=== PATIENT | female | born 1940 | race Caucasian/White ===

== ENCOUNTER 2016-07-23 13:00 | Emergency (ER) | payer OTHER ==
--- NOTE | 2016-07-23 14:36 | DIAGNOSTIC IMAGING REPORT ---
PROCEDURE: XR CHEST 1 VIEW INDICATION: SHORTNESS OF BREATH TECHNIQUE: Portable AP view 01:34 p.m. COMPARISON: None. FINDINGS: Lungs are clear. Heart and mediastinum are normal. Thorax is normal. IMPRESSION: 1. Negative chest.
--- NOTE | 2016-07-23 16:50 | DIAGNOSTIC IMAGING REPORT ---
PROCEDURE: CTA THORAX WITH CONTRAST INDICATION: Shortness of breath, initial encounter TECHNIQUE: 85 ml of Isovue 370 was injected intravenously and axial images were obtained of the entire thorax with 3D sagittal and coronal MIP reconstructions. COMPARISON: Chest x-ray 07/23/2016 FINDINGS: No evidence of pulmonary emboli. Moderate emphysema. No adenopathy or effusion. Moderate atherosclerosis of the aorta. Coronary atherosclerosis. Heart size is normal. Bilateral mastectomies. Cholecystectomy. 8 mm hypoenhancing lesion in the head of the pancreas. No biliary distention. Small hiatal hernia. Moderate degenerative changes of the spine. IMPRESSION: 1. No evidence of pulmonary emboli 2. Emphysema 3. Cholecystectomy 4. 8 mm hypoenhancing lesion in the head of the pancreas. Recommend dedicated CT scan of the pancreas. 5. Small hiatal hernia 6. Bilateral mastectomies. 7. Results discussed with Allyn Freedman, PAC
--- NOTE | 2016-07-23 17:29 | ED NURSING NOTES ---
Clinical Report - Nurses [facility] [address] [place] [address] 07/23/2016 13:00 Patient: TRICE BUNDY I TRIAGE Triage time 13:00 Jul 23 2016. Acuity: LEVEL 3. Chief Complaint: DIZZINESS, WEAKNESS and NEAR-SYNCOPE. 13:00 07/23/16. SEPSIS SCREEN: Sepsis Screen: negative. Negative (no infection suspected/documented). --13:09 Shayy Garay R.N. 13:01 07/23/16. BP: 181/71. HR: 84. RR: 16. O2 saturation: 100%. Temp: 97.6 F. Pain level now: 0/10. --13:09 Shayy Garay R.N. JOHANN COMA SCORE: Kechi Coma Scale: 15- eyes open spontaneously (4); best verbal response- oriented x 4 (5); best motor response- obeys commands (6). --13:09 Shayy Garay R.N. Weight: 79.3 kg stated. Height/Length: 64 inches Per Patient. BMI: 30. --13:00 Shayy Garay R.N. Medications Unknown. --23:12 Shayy Garay R.N. Medication/allergy information source: the patient. --13:09 Shayy Garay R.N. Allergies No Known Drug Allergy. --13:02 Shayy Garay R.N. History Arrived by EMS. Historian: patient. Patient has a primary care physician. Primary physician (RAFI ABRAMS). ( Patient states felt weak and dizzy, near syncope. [place] fine yesterday). This started today. She has had nausea, trouble walking and weakness. No ear pain, headache, vomiting, fainting episodes or tinnitus. PAST MEDICAL HX: Immunizations: has received pneumonia vaccine. Has not received seasonal influenza immunization. The patient is post-menopausal. SOCIAL HX: Former smoker. No alcohol use or drug use. No infectious disease exposure. ABUSE ASSESSMENT: No report of abuse. SELF HARM ASSESSMENT: A self harm assessment was performed. The patient answered "no" to the question "Have you recently felt down, depressed, or hopeless?", "Have you noticed less interest or pleasure in doing things?", "Do you have thoughts of harming or killing yourself?", "Are you here because you tried to hurt yourself?", "Have you ever tried to hurt yourself before today?", "Have you recently had thoughts about harming or killing others?" and "Do you have any dangerous items in your possession?". NUTRITIONAL RISK ASSESSMENT: The nutritional risk assessment revealed no deficiencies. FUNCTIONAL ASSESSMENT: Functional assessment: no impairments noted. LEARNING NEEDS ASSESSMENT: The learning needs assessment revealed no barriers. SKIN INTEGRITY ASSESSMENT: Skin integrity risk assessment completed. No skin integrity risk identified. --13:09 Shayy Garay R.N. PROBLEMS: Hypertension. Breast Cancer. --13:03 Shayy Garay R.N. ADDITIONAL SURGERIES: Mastectomy. --13:03 Shayy Garay R.N. Interventions ID band on patient. --13:09 Shayy Garay R.N. PHYSICAL ASSESSMENT 13:11 07/23/16. To room via stretcher. GENERAL / NEURO / PSYCH: Oriented X 4. Appears in no acute distress. Alert. Speech within normal limits. NIH Stroke Scale: score 0. Level of Consciousness: alert (0). LOC Questions: both (0). LOC Commands: both (0). Best gaze: normal (0). Visual field loss: none (0). Facial palsy: normal (0). Motor arm: no drift right arm (0). Motor leg: no drift right leg (0). Limb ataxia: none (0). Sensory loss: none (0). Aphasia: none (0). Dysarthria: normal (0). Extinction and inattention: none (0). HEENT: No facial asymmetry noted. Pupils equal, round and reactive to light. RESPIRATORY: Breath sounds within normal limits. CVS: Normal sinus rhythm noted. Capillary refill less than 2 seconds. GI / : Abdomen soft and nontender. SKIN: Skin is warm and dry. --13:11 Shayy Garay R.N. NURSING PROGRESS NOTES 13:00 07/23/16. Cardiac rhythm: normal sinus rhythm. The initial plan of care for this patient includes an assessment with efforts to address impairment of the cardiovascular and neurological system. This plan of care was discussed with the patient. transportation job titles, pulse oximeter and NIBP monitor placed on patient; recreation adviser- Lead II; monitor alarms on. Patient gowned. Two patient identifiers checked. Call light placed in reach. Side rails up x 2. Bed placed in lowest position. Brakes of bed on. Patient ready for evaluation. --13:10 Shayy Garay R.N. 13:30 07/23/2016 Site #1 started via IV in the right forearm with an 20g angiocath, with aseptic technique and good blood return; one attempt. Saline lock flushed with 10 mL saline. --13:34 Shayy Garay R.N. 13:34 07/23/16. Patient ID band checked for patient name and birthdate: patient confirmed. Blood samples drawn from the right forearm with syringe 22g by nurse ; labeled in presence of the patient and sent to lab: green, purple and blue top. --13:34 Shayy Garay R.N. 13:37 07/23/2016 Started bag #1 1000 mL IV Fluids IV NS (Saline); bolus of 1000 mL wide open then at 2000 mL/hr over 30 minute(s) via site #1. Allergies verified and confirmed 5 rights. IV patency established. IV site checked: no pain, redness, or swelling. IV flushed thoroughly pre- and post-medication administration. --13:37 Shayy Garay R.N. EKG time: (13:37 Jul 23 2016). EKG was ordered, performed by a tech and shown to the ED physician. --13:38 Evelyn [place] 14:10 07/23/2016 IV Fluids IV NS Discontinued: bag #1 completed. Total amount infused: 1000 mL. IV patency established. IV site checked: no pain, redness, or swelling. IV flushed thoroughly. --14:10 Shayy Garay R.NHelder 14:14 07/23/16. Reassessment after fluids administered. She is calm and resting quietly. Overall patient status is improved- she states feels better. ( STATES HEAD FEELS MORE CLEAR). GENERAL / NEURO / PSYCH: Alert. Oriented X 4. --14:14 Shayy Garay R.N. 14:14 07/23/16. BP: 171/58. HR: 82. RR: 16. O2 saturation: 100%. Pain level now 5/10. --14:14 Shayy Garay R.NHelder 14:30 07/23/16. Patient ID band checked for patient name and birthdate: patient confirmed. Flu swab obtained by RN via nasal swab. Labeled in the presence of the patient and sent to lab. --14:54 Shayy Garay R.N. 14:40 07/23/16. Cardiac rhythm: normal sinus rhythm. --14:40 Shayy Garay R.N. 14:40 07/23/16. BP: 176/78. HR: 64. RR: 18. O2 saturation: 100%. --14:40 Shayy Garay R.N. 16:47 07/23/16. BP: 174/81. HR: 78. RR: 16. O2 saturation: 100%. --16:48 Shayy Garay R.N. Cardiac rhythm: normal sinus rhythm. Patient waiting for CT results and disposition. --16:48 Shayy Garay R.N. 17:45 07/23/2016 Site #1 removed upon discharge. Bandaid applied. --19:06 Josie Dee R.N. 17:40first contact with pt. Pt given dc instructions and IV site dc'd intact. --19:08 Josie Dee R.N. Intake & Output 14:40 07/23/16. IV fluids: 1000. Urine, with return of 400 mL urine. --14:40 Shayy Garay R.N. DISPOSITION / DISCHARGE 17:50. Condition at departure: improved and stable. No learning barriers present. Discharge instructions provided and reviewed with the patient and family. Reviewed referrals (your PCP on Wednesday for f/u regarding pancreas). Written instructions provided in [place]. The patient was discharged home and accompanied by family. She left the Emergency Department ambulatory and via private vehicle. --19:05 Josie Dee R.N. 17:52 07/23/16. BP: 166/67. HR: 66. RR: 18. O2 saturation: 100%. Temp: deferred. Pain level now: 09/18. --19:05 Josie Dee R.N. Locked/Released at 07/23/2016 23:13 by Shayy Garay R.N.
--- NOTE | 2016-07-23 17:29 | ED ORDER SUMMARY ---
..... Patient: TRICE BUNDY I OrderSheet [facility] VisitID: [id number] [place] [address] 76y, F Registration Date/Time: 07/23/2016 ORDER SHEET Weight: 79.3 kg (stated) Allergies: No Known Drug Allergy GENERAL ORDERS: Climatology Professor (Spot Check) (13:07/23/2016 EKoroleva P.A.-C) (Ack 13:16 TBergley) (13:35 EInderbitzen R.N.) EKG - ER Stat (13:07/23/2016 EKoroleva P.A.-C) (Ack 13:16 TBergley) (13:35 EInderbitzen R.N.) Chest 1V Urgent (13:07/23/2016 EKoroleva P.A.-C) (Ack 13:26 TBergley) (14:18 TBergley) UA-Culture if indicated Urgent (13:22 07/23/2016 EKoroleva P.A.-C) (Ack 13:26 TBergley) (14:31 EInderbitzen R.N.) Cardiac Panel Stat (13:07/23/2016 EKoroleva P.A.-C) (Ack 13:26 TBergley) (13:52 TBergley) D-Dimer Urgent (13:07/23/2016 EKoroleva P.A.-C) (Ack 13:26 TBergley) (13:52 TBergley) Lipase Urgent (13:22 07/23/2016 EKoroleva P.A.-C) (Ack 13:26 TBergley) (13:52 TBergley) Rapid Influenza Screen (Nasal Pharyngeal) (n) Urgent (13:07/23/2016 EKoroleva P.A.-C) (Ack 13:26 TBergley) (15:10 EInderbitzen R.N.) CTA Thorax w Cont (No) (see lab) Urgent (15:06 07/23/2016 EKoroleva P.A.-C) (Ack 15:14 TBergley) (17:32 TBergley) Vitals - Orthostatic (16:56 07/23/2016 Nabil Ricardo) (Ack 17:12 TBergley) (17:32 TBergley) MEDICATION ORDERS: IV FLUIDS: IV NS : initial bolus 1000 mL (1000 mL/hr), then 100 mL/hr for X1 (NOW); Niranjan (13:22 07/23/2016 Nabil Ricardo) (13:37 Demetra Rucker) ORDER SHEET NOTES: [Electronically signed by Shayy Garay R.N. (23:13 07/23/2016)] [Electronically signed by Christelle Freedman P.A.-C (23:27 07/23/2016)] [Electronically locked/signed by Shayy Garay R.N. (23:13 07/23/2016)]
--- NOTE | 2016-07-23 17:29 | ED ORDER SUMMARY ---
..... Patient: TRICE BUNDY I OrderSheet [facility] VisitID: [id number] [place] [address] 76y, F Registration Date/Time: 07/23/2016 ORDER SHEET Weight: 79.3 kg (stated) Allergies: No Known Drug Allergy GENERAL ORDERS: Health Science Writer (Spot Check) (13:07/23/2016 EKoroleva P.A.-C) (Ack 13:16 TBergley) (13:35 EInderbitzen R.N.) EKG - ER Stat (13:07/23/2016 EKoroleva P.A.-C) (Ack 13:16 TBergley) (13:35 EInderbitzen R.N.) Chest 1V Urgent (13:07/23/2016 EKoroleva P.A.-C) (Ack 13:26 TBergley) (14:18 TBergley) UA-Culture if indicated Urgent (13:22 07/23/2016 EKoroleva P.A.-C) (Ack 13:26 TBergley) (14:31 EInderbitzen R.N.) Cardiac Panel Stat (13:07/23/2016 EKoroleva P.A.-C) (Ack 13:26 TBergley) (13:52 TBergley) D-Dimer Urgent (13:07/23/2016 EKoroleva P.A.-C) (Ack 13:26 TBergley) (13:52 TBergley) Lipase Urgent (13:22 07/23/2016 EKoroleva P.A.-C) (Ack 13:26 TBergley) (13:52 TBergley) Rapid Influenza Screen (Nasal Pharyngeal) (n) Urgent (13:07/23/2016 EKoroleva P.A.-C) (Ack 13:26 TBergley) (15:10 EInderbitzen R.N.) CTA Thorax w Cont (No) (see lab) Urgent (15:06 07/23/2016 EKoroleva P.A.-C) (Ack 15:14 TBergley) (17:32 TBergley) Vitals - Orthostatic (16:56 07/23/2016 Nabil Ricardo) (Ack 17:12 TBergley) (17:32 TBergley) MEDICATION ORDERS: IV FLUIDS: IV NS : initial bolus 1000 mL (1000 mL/hr), then 100 mL/hr for X1 (NOW); Niranjan (13:22 07/23/2016 Nabil Ricardo) (13:37 Demetra Rucker) ORDER SHEET NOTES: [Electronically signed by Shayy Garay R.N. (23:13 07/23/2016)] [Electronically signed by Christelle Freedman P.A.-C (23:27 07/23/2016)] [Electronically locked/signed by Shayy Garay R.N. (23:13 07/23/2016)]
--- NOTE | 2016-07-23 17:29 | ED CLINICAL REPORT ---
Clinical Report - Physicians/Mid Levels [facility] [address] [place] [address] 07/23/2016 13:00 Patient: TRICE BUNDY I Time Seen: 13:22 Jul 23 2016. Arrived- By ambulance. Historian- patient and EMS personnel. HISTORY OF PRESENT ILLNESS Chief Complaint: weak. This started just prior to arrival and is still present. (she reports awakening as her usual self, having urgency and frequency to the bathroom, thought she had a bladder infection, that started drinking heavily with water, thereafter while standing she did not feel well, weak lightheaded dizzy, and went to lay down, attempted to get up, however did not feel well standing, and this called a friend, who called 911. She denies any shortness of breath or chest pain. She reports uncomfortable being in the bed, she has spinal stenosis and chronic low back pain. This is not new. She has had no fevers. She has no shortness of breath or chest pain. Indications to her omeprazole as needed over the last 1 month, with new diagnosis of acid reflux. no recent travel). REVIEW OF SYSTEMS No fever, sore throat, cough, difficulty breathing or chest pain. No nausea, diarrhea, skin rash or back pain. She has had difficulty with urination. All systems otherwise negative, except as recorded above. PAST HISTORY Problems: Hypertension. Breast Cancer. Additional Surgeries: Mastectomy. Allergies: No Known Drug Allergy. SOCIAL HISTORY Former smoker. No alcohol use or drug use. ADDITIONAL NOTES The nursing notes have been reviewed. PHYSICAL EXAM Vital Signs: 07/23/2016 13:01 BP: 181/71. HR: 84. RR: 16. O2 saturation: 100%. Temp: 97.6 F. Pain level now: 0/10. Appearance: Alert. Patient in mild distress. Eyes: Eyes normal inspection. CVS: Normal heart rate and rhythm. Heart sounds normal. Respiratory: No respiratory distress. Breath sounds normal. Abdomen: No visible injury. Soft. Bowel sounds normal. No abdominal tenderness. The bowel sounds are not abnormal. Skin: Skin warm. Normal skin color. Neuro: Oriented X 3. No cranial nerve deficit. No motor deficit. No sensory deficit. LABS, X-RAYS, AND EKG EKG: EKG time: (1337). No acute process. No acute ischemia. Rate: 74. no change from prior study04/08/[address] Bui (ER). The study has been interpreted contemporaneously. The study has been independently viewed by me. The EKG appears to be a good tracing. Chest X-ray: (IMPRESSION: 1. Negative chest. Electronically Final signed by:Milan Negrete MD 07/23/2016 2:39:47 PM). Chest CT: (IMPRESSION: 1. No evidence of pulmonary emboli 2. Emphysema 3. Cholecystectomy 4. 8 mm hypoenhancing lesion in the head of the pancreas. Recommend dedicated CT scan of the pancreas. 5. Small hiatal hernia 6. Bilateral mastectomies. 7. Results discussed with IVETH Vance Electronically Final signed by:Danish Hensley MD 07/23/2016 4:50:18 PM). Laboratory Tests: UA-Culture if indicated: (SUNDAY: 07/23/2016 13:46) ( MsgRcvd 07/23/2016 14:30) Final results Test Result Flag Units (Reference) URINE COLOR YELLOW URINE APPEARANCE CLEAR URINE GLUCOSE NEGATIVE (NEGATIVE) URINE BILIRUBIN NEGATIVE (NEGATIVE) URINE KETONE NEGATIVE (NEGATIVE) URINE SPECIFIC GRAVITY 1.010 (1.010-1.030) URINE PH 7.0 (5.0-8.0) URINE PROTEIN NEGATIVE (NEGATIVE) URINE UROBILINOGEN 0.2 EU/dL (0.2-1.0) URINE NITRITE NEGATIVE (NEGATIVE) URINE BLOOD 1+ (NEGATIVE) URINE LEUK ESTERASE NEGATIVE (NEGATIVE) URINE RBC RARE rbc/hpf (0-1) URINE WBC 0-1 wbc/hpf (0-1) URINE EPITHELIAL CELLS 1-3 EPI/hpf (0-5) URINE BACTERIA NONE SEEN (NONE SEEN) URINE COMMENT CULT NOT INDICATED URINE CULTURES ARE SET-UP BASED ON THE FOLLOWING CRITERIA:POSITIVE NITRITEPOSITIVE LEUKOCYTE ESTERASEGREATER THAN 10 WHITE BLOOD CELLSMODERATE (2+) OR GREATER BACTERIA CBC w Diff: (SUNDAY: 07/23/2016 13:30) ( MsgRcvd 07/23/2016 13:54) Final results Test Result Flag Units (Reference) WHITE BLOOD COUNT 9.3 K/uL (4.5-11.5) RED BLOOD COUNT 4.69 M/uL (4.00-5.20) HEMOGLOBIN 14.0 gm/dL (12.0-16.0) HEMATOCRIT 43.3 % (36.0-46.0) MEAN CELL VOLUME 92 fL (80-100) MEAN CORPUSCULAR HGB 30 pg (26-34) MEAN CORPUSCULAR HGB CONC 32 g/dL (31-37) RED CELL DISTRIBUTION WIDTH 14.2 % (11.6-14.8) PLATELET COUNT 251 K/uL (150-400) LYMPH % 40.2 H % (25-40) MONO % 5.8 % (3-14) GRANULOCYTE % 54.0 (53-90) [id number]: (SUNDAY: 07/23/2016 13:30) ( MsgRcvd 07/23/2016 14:14) Final results Test Result Flag Units (Reference) D-DIMER QUANTITATIVE 0.95 H ug/mLFEU (0.27-0.52) The primary value of this quantitative assay relates toits negative predictive value (i.e. exclusion) of pulmonaryembolism/deep vein thrombosis/DIC.Elevated levels of d-dimer may also occur with:, age, cancer, inflammation, liver disease,post-op, infection, hematoma, coronary disease, peripheralarteriopathy, bleeding disorders and thrombolytic treatment.Results should be correlated with other clinical andradiological data.Testing Methodology: Latex Immunoassay CHEM 13 PANEL: (SUNDAY: 07/23/2016 13:30) ( MsgRcvd 07/23/2016 15:05) Final results Test Result Flag Units (Reference) GLUCOSE 130 H mg/dL (70-110) BUN 16 mg/dL (7-18) CREATININE 0.7 mg/dL (0.6-1.3) Estimated GFR >60 mL/min Estimated GFR- >60 mL/min Note: Persistent reduction over 3 months in eGFR<60 mL/min/1.73 m2 defines CKD. Patients with eGFR values>=60 mL/min/1.73 m2 may also have CKD if evidence ofpersistent proteinuria. Additional information may be foundat www.kidney.org. SODIUM 129 L mmol/L (136-145) POTASSIUM 3.8 mmol/L (3.5-5.1) CHLORIDE 94 L mmol/L (98-107) CARBON DIOXIDE 23 mmol/L (21-32) CALCIUM 8.7 mg/dL (8.5-10.1) TOTAL PROTEIN 6.8 g/dL (6.4-8.2) ALBUMIN 3.2 L g/dL (3.3-5.0) BILIRUBIN, TOTAL 1.0 mg/dL (0.0-1.0) ALKALINE PHOSPHATASE 108 U/L (46-116) AST (SGOT) 41 H U/L (15-37) ALT (SGPT) 49 U/L (12-78) MAGNESIUM 1.6 L mg/dL (1.8-2.4) LIPASE 221 U/L (73-393) CPK 122 U/L (24-260) TROPONIN I 0.07 ng/mL (0.00-1.5) TROPONIN REFERENCE RANGE:<0.1 NEGATIVE0.1-1.5 INDETERMINANT>1.5 POSITIVE Rapid Influenza Screen: (SUNDAY: 07/23/2016 14:35) ( MsgRcvd 07/23/2016 15:00) Final results SPECIMEN DESCRIPTION: N Test Result Flag Units (Reference) RAPID INFLUENZA SCREEN DATE: 07/23/16 INFLUENZA A: NEGATIVE SCREEN FOR INFLUENZA A INFLUENZA B: NEGATIVE SCREEN FOR INFLUENZA B . PROGRESS AND PROCEDURES Course of Care: patient in the ER, had vague symptoms upon arrival, her symptoms resolved after IV normal saline. She may have had symptomatic hyponatremia, secondary to drinking water prior to arrival, however at this time such has been resolved, no other clear cause or source of her weakness, and vague sensations. At this time she had no further symptoms, CTA of the chest was unremarkable, after a elevated d-dimer was discovered. Troponin EKG unremarkable, lab workup is largely unremarkable beyond hyponatremia, no signs of cystitis. Small pancreas lesion was noted, patient was made aware of this, and will be dedicated CT for such. She is aware of this. 07/23/2016 17:52 BP: 166/67. HR: 66. RR: 18. O2 saturation: 100%. Pain level now: 09/18. Patient is stable. Symptoms better. Patient/family counseled. Differential Diagnosis: I considered ischemic stroke, subdural hematoma, arteriovenous malformation, aneurysm, migraine equivalent, cord compression, disc disease, subdural abscess, epidural abscess, syringomyelia, transverse myelitis, spinal cord stroke, spinal arteriovenous malformation, peripheral neuropathy, toxic etiology, hypoglycemia, hyperglycemia, periodic hypokalemic paralysis, paraneoplastic syndrome, Guillain-[place] syndrome, HIV-related disease and polymyositis as a possible cause of weakness in this patient. This is a partial list of diagnoses considered. I considered muscle strain, pleurisy, epidemic pleurodynia, intercostal neuritis, myocardial infarction, intermediate coronary syndrome, aortic dissection, pulmonary embolism and pneumonia as a possible cause of chest pain in this patient. This is a partial list of diagnoses considered. Disposition: Discharged. CLINICAL IMPRESSION Acute dizziness Hypertension. Mild hyponatremia Pancreas Lesion. INSTRUCTIONS (8 mm hypoenhancing lesion in the head of the pancreas. Recommend dedicated CT scan of the pancreas). Warnings: Further evaluation is necessary. GENERAL WARNINGS: Return or contact your physician immediately if your condition worsens or changes unexpectedly, if not improving as expected, or if other problems arise. Follow-up: Follow up with your doctor Wednesday. (Electronically signed by Christelle Freedman P.A.-C 07/23/2016 23:27)
--- NOTE | 2016-07-23 23:27 | ED MED RECONCILIATION SUMMARY ---
Patient: TRICE BUNDY I Medication Reconciliation Report [facility] VisitID: [id number] [address] [place] [address] 76y, F Registration Date/Time: 07/23/2016 Weight: 79.3 kg Height/Length: 64 in. BMI: 30.0 ALLERGIES: No Known Drug Allergy The patient's Home Medications are listed below: Unknown. The source(s) of the original Home Medication information: patient The following Medications were given to the patient in the Emergency Department: IV NS IV Fluids bolus 1000 mL wide open, then 2000 mL/hr, administered: 07/23/2016 1:37:00 PM The following Medications were prescribed to the patient: None.
--- NOTE | 2016-07-23 23:27 | ED DISCHARGE INSTRUCTIONS ---
Patient: TRICE BUNDY I General Instructions [facility] VisitID: [id number] [place] [address] 76y, F Registration Date/Time: 07/23/2016 Acute dizziness Hypertension. Mild hyponatremia Pancreas Lesion. INSTRUCTIONS (8 mm hypoenhancing lesion in the head of the pancreas. Recommend dedicated CT scan of the pancreas). Warnings: Further evaluation is necessary. GENERAL WARNINGS: Return or contact your physician immediately if your condition worsens or changes unexpectedly, if not improving as expected, or if other problems arise. Follow-up: Follow up with your doctor Wednesday. ADDITIONAL INFORMATION Dizziness [Uncertain Cause] Dizziness is a common symptom sometimes described as "lightheadedness" or feeling like you are going to faint. If it lasts for only a few seconds and is related to changes in position (such as getting up after lying or sitting for a long time), it is usually not a sign of anything serious. Dizziness that lasts for minutes to hours, or comes on for no apparent reason, may be a sign of a more serious problem (such as dehydration, a medicine reaction, disease of the heart or brain). Today's exam did not show an exact cause for your dizzy spell . Sometimes additional tests are required before a cause can be found. Therefore, it is important to follow up with your doctor if your symptoms continue. Home Care: 1) If a dizzy spell occurs and lasts more than a few seconds, lie down until it passes. If you are lying down, then you cannot hurt yourself by falling if you do faint. 2) Do not drive or operate dangerous equipment until the dizzy spells have stopped for at least 48 hours. 3) If dizzy spells occur with sudden standing, this may be a sign of mild dehydration. Drink extra fluids over the next few days. 4) If you recently started a new medicine or if you had the dose of a current medicine increased (especially blood pressure medicine), talk with the prescribing doctor about your symptoms. Dose adjustments may be needed. Follow Up with your doctor for further evaluation within the next seven days, if your symptoms continue. Get Prompt Medical Attention if any of the following occur: -- Worsening of your symptoms -- Fainting, headache or seizure -- Repeated vomiting -- Feeling like you or the room is spinning -- Chest, arm, neck, back or jaw pain -- Palpitations (the sense that your heart is fluttering or beating fast or hard) -- Shortness of breath -- Blood in vomit or stool (black or red color) -- Weakness of an arm or leg or one side of the face -- Difficulty with speech or vision Hyponatremia Hyponatremia means low sodium levels in the blood. This condition most often occurs after prolonged vomiting or diarrhea. It can also result from the use of diuretics (water pills) or drinking excess amounts of water. Mild hyponatremia causes no symptoms. It is only discovered with a blood test. As sodium levels in the blood decreases, symptoms begin to appear. This includes weakness, confusion, muscle cramping and seizures. Home Care: 1) Reduce your daily water intake until the problem is corrected. 2) If you have been taking diuretics, you may be asked to stop taking them for a short time. 3) If you are having symptoms of weakness or confusion, do not drive or operate dangerous machinery until symptoms resolve. Follow Up with your doctor for a repeat blood test within the next week unless told otherwise. Get Prompt Medical Attention if any of the following occur: -- Increasing weakness -- Dizziness -- Irregular heartbeat, extra beats or very fast heart rate -- Fainting spell You have been given the following additional information: Dizziness, Unk Cause Hyponatremia (Electronically signed by Christelle Freedman P.A.-C 07/23/2016 23:27)
--- NOTE | 2016-07-23 23:27 | ED MAR SUMMARY ---
..... Medication Administration Record [facility] [address] [place] [address] Patient: TRICE BUNDY I Visit ID: [id number] 76y, F Weight: 79.3 kg Height/Length: 64 in BMI: 30 ALLERGIES: No Known Drug Allergy Start 13:37 07/23/2016 Shayy Garay R.N., Stop 14:10 07/23/2016 Shayy Garay R.N. Medication Administered: IV NS (SALINE), Dose: IV Fluids over 30 minute(s), Rate: 2000 mL/hr, Bolus: 1000 mL wide open, Dispensed: 1000 mL bag, Site: #1 right forearm. Medication Ordered: IV NS : initial bolus 1000 mL (1000 mL/hr), then 100 mL/hr for X1 (NOW); Niranjan.
--- NOTE | 2016-07-23 23:27 | ED MED RECONCILIATION SUMMARY ---
Patient: TRICE BUNDY I Medication Reconciliation Report [facility] VisitID: [id number] [address] [place] [address] 76y, F Registration Date/Time: 07/23/2016 Weight: 79.3 kg Height/Length: 64 in. BMI: 30.0 ALLERGIES: No Known Drug Allergy The patient's Home Medications are listed below: Unknown. The source(s) of the original Home Medication information: patient The following Medications were given to the patient in the Emergency Department: IV NS IV Fluids bolus 1000 mL wide open, then 2000 mL/hr, administered: 07/23/2016 1:37:00 PM The following Medications were prescribed to the patient: None.
--- NOTE | 2016-07-23 23:27 | ED MAR SUMMARY ---
..... Medication Administration Record [facility] [address] [place] [address] Patient: TRICE BUNDY I Visit ID: [id number] 76y, F Weight: 79.3 kg Height/Length: 64 in BMI: 30 ALLERGIES: No Known Drug Allergy Start 13:37 07/23/2016 Shayy Garay R.N., Stop 14:10 07/23/2016 Shayy Garay R.N. Medication Administered: IV NS (SALINE), Dose: IV Fluids over 30 minute(s), Rate: 2000 mL/hr, Bolus: 1000 mL wide open, Dispensed: 1000 mL bag, Site: #1 right forearm. Medication Ordered: IV NS : initial bolus 1000 mL (1000 mL/hr), then 100 mL/hr for X1 (NOW); Niranjan.
== END 2016-07-23 17:50 | disposition home or self-care (01) ==
LOC: ED SRH 13:00
DX: R42 Dizziness and giddiness (principal); I10 Essential (primary) hypertension; E87.1 Hypo-osmolality and hyponatremia; K86.9 Disease of pancreas, unspecified; Z85.3 Personal history of malignant neoplasm of breast; Z87.891 Personal history of nicotine dependence
CPT/HCPCS: 90004; 90100; 90616; 91400; 91556; 92235; 92610; 92720; 95059

== ENCOUNTER 2016-10-13 17:10 | Observation (INO) | payer OTHER ==
[~2016-10-13] VITALS: Ht 162.6 cm; Wt 81.2 kg
--- NOTE | 2016-10-13 18:34 | DIAGNOSTIC IMAGING REPORT ---
PROCEDURE: CT HEAD WITHOUT CONTRAST INDICATION: MENTAL STATUS CHANGE TECHNIQUE: Noncontrast axial images with sagittal and coronal reformations. COMPARISON: None. FINDINGS: There are prominent CSF spaces over the frontal lobes. Brain and ventricles are normal. No evidence of an acute process or hemorrhage. Sinuses and mastoids are normal. IMPRESSION: 1. Prominent CSF spaces over the frontal lobes most consistent with frontal atrophy. Bilateral chronic subdural hygromas are considered less likely (no evidence of mass effect). 2. Otherwise negative head CT. No evidence of acute process. No evidence of hydrocephalous 3. Findings discussed with Dr. Stalin Perdue at [address] scans at this facility use dose modulation, iterative reconstruction, and/or weight-based dosing when appropriate to reduce radiation dose to as low as reasonably achievable.
--- NOTE | 2016-10-13 18:47 | DIAGNOSTIC IMAGING REPORT ---
PROCEDURE: XR CHEST 2 VIEW INDICATION: ALTERED MENTAL STATUS TECHNIQUE: PA and lateral views. COMPARISON: Compared to CTA thorax on 07/23/2016. FINDINGS: Lungs are clear. Heart and mediastinum are normal. There mild degenerate change of the thoracic spine. Surgical clips are seen overlying the left axilla. IMPRESSION: 1. Negative chest.
--- NOTE | 2016-10-13 21:45 | ED CLINICAL REPORT ---
Clinical Report - Physicians/Mid Levels [facility] [address] [place] [address] 10/13/2016 17:10 Patient: TRICE BUNDY I Time Seen: 1755. Arrived- By private vehicle. Historian- patient. HISTORY OF PRESENT ILLNESS Chief Complaint: CHANGED MENTAL STATUS. This started past few days and is still present and worsening. It was gradual in onset and has been constant and waxing/waning but is not gone now. Patient was last known well (several days ago). The patient has been confused and "felt strange". (difficulty with walking, dizzy, and with problems concentrating.). No numbness or recent fall. She has had difficulty walking. Usually is alert and oriented X3 and usually has normal mobility. Similar symptoms previously: (once several months ago. attributed this to dehydration.). Recent medical care: Not recently seen/assessed. REVIEW OF SYSTEMS No chest pain, difficulty breathing, abdominal pain, nausea or black stools. No skin rash or vomiting. All systems otherwise negative, except as recorded above. PAST HISTORY See nurses notes. Medications: Losartan Potassium-HCTZ Oral. Gabapentin Oral. Allergies: No Known Drug Allergy. SOCIAL HISTORY Never smoker. No alcohol use or drug use. No recent travel. Is a local resident. ADDITIONAL NOTES The nursing notes have been reviewed. PHYSICAL EXAM Vital Signs: 10/13/2016 17:59 BP: 181/74. HR: 72. RR: 18. O2 saturation: 97%. Temp: 98.6 F. Hypertensive. Oxygen saturation normal. Appearance: Alert. No acute distress. Head: Head atraumatic. Eyes: Pupils equal, round and reactive to light. ENT: Normal ENT inspection. Airway intact. Moist mucous membranes. Pharynx normal. Neck: Normal inspection. Neck supple. CVS: Normal heart rate and rhythm. Heart sounds normal. Pulses normal. Respiratory: No respiratory distress. Breath sounds normal. Abdomen: Soft and nontender. No organomegaly. Back: Normal inspection. Skin: Skin warm and dry. Normal skin color. No rash. Normal skin turgor. Extremities: Extremities exhibit normal ROM. No lower extremity edema. Neuro: Alert. Oriented X 3. Mood/affect normal. Speech normal. Cranial nerves normal (as tested). No cerebellar findings. No motor deficit. No sensory deficit. Reflexes normal. LABS, X-RAYS, AND EKG Chest X-ray: (PROCEDURE: XR CHEST 2 VIEW INDICATION: ALTERED MENTAL STATUS TECHNIQUE: PA and lateral views. COMPARISON: Compared to CTA thorax on 07/23/2016. FINDINGS: Lungs are clear. Heart and mediastinum are normal. There mild degenerate change of the thoracic spine. Surgical clips are seen overlying the left axilla. IMPRESSION: 1. Negative chest.). CT Head: (PROCEDURE: CT HEAD WITHOUT CONTRAST INDICATION: MENTAL STATUS CHANGE TECHNIQUE: Noncontrast axial images with sagittal and coronal reformations. COMPARISON: None. FINDINGS: There are prominent CSF spaces over the frontal lobes. Brain and ventricles are normal. No evidence of an acute process or hemorrhage. Sinuses and mastoids are normal. IMPRESSION: 1. Prominent CSF spaces over the frontal lobes most consistent with frontal atrophy. Bilateral chronic subdural hygromas are considered less likely (no evidence of mass effect). 2. Otherwise negative head CT. No evidence of acute process. No evidence of hydrocephalous). Head CT performed without contrast. The study was independently viewed by me and interpreted by the radiologist. The study was discussed with the radiologist (via phone). Laboratory Tests: UA-Culture if indicated: (SUNDAY: 10/13/2016 18:10) ( MsgRcvd 10/13/2016 18:44) Final results Test Result Flag Units (Reference) URINE COLOR YELLOW URINE APPEARANCE CLEAR URINE GLUCOSE NEGATIVE (NEGATIVE) URINE BILIRUBIN NEGATIVE (NEGATIVE) URINE KETONE NEGATIVE (NEGATIVE) URINE SPECIFIC GRAVITY 1.010 (1.010-1.030) URINE PH 7.0 (5.0-8.0) URINE PROTEIN NEGATIVE (NEGATIVE) URINE UROBILINOGEN 0.2 EU/dL (0.2-1.0) URINE NITRITE NEGATIVE (NEGATIVE) URINE BLOOD TRACE-INTACT (NEGATIVE) URINE LEUK ESTERASE NEGATIVE (NEGATIVE) URINE RBC 3-5 rbc/hpf (0-1) URINE WBC 0-1 wbc/hpf (0-1) URINE EPITHELIAL CELLS 1-3 EPI/hpf (0-5) URINE BACTERIA NONE SEEN (NONE SEEN) URINE COMMENT CULT NOT INDICATED URINE CULTURES ARE SET-UP BASED ON THE FOLLOWING CRITERIA:POSITIVE NITRITEPOSITIVE LEUKOCYTE ESTERASEGREATER THAN 10 WHITE BLOOD CELLSMODERATE (2+) OR GREATER BACTERIA CBC w Diff: (SUNDAY: 10/13/2016 18:50) ( [facility] 10/13/2016 19:09) Final results Test Result Flag Units (Reference) WHITE BLOOD COUNT 8.5 K/uL (4.5-11.5) RED BLOOD COUNT 4.33 M/uL (4.00-5.20) HEMOGLOBIN 13.5 gm/dL (12.0-16.0) HEMATOCRIT 39.8 % (36.0-46.0) MEAN CELL VOLUME 92 fL (80-100) MEAN CORPUSCULAR HGB 31 pg (26-34) MEAN CORPUSCULAR HGB CONC 34 g/dL (31-37) RED CELL DISTRIBUTION WIDTH 13.5 % (11.6-14.8) PLATELET COUNT 292 K/uL (150-400) NEUTROPHIL % 76.8 H % (50-75) LYMPH % 16.3 L % (25-40) MONO % 5.5 % (3-14) EOSINOPHIL % 0.3 % (0-4) BASOPHIL % 1.1 % (0-2) TSH: (SUNDAY: 10/13/2016 19:15) ( [facility] 10/13/2016 20:09) Final results Test Result Flag Units (Reference) THYROID STIMULATING HORMONE 2.212 uIU/mL (0.30-3.74) Lactate, Serum: (SUNDAY: 10/13/2016 19:15) ( [facility] 10/13/2016 20:03) Final results Test Result Flag Units (Reference) LACTIC ACID 1.2 mmol/L (0.4-2.0) CMP: (SUNDAY: 10/13/2016 19:15) ( [facility] 10/13/2016 19:55) Final results Test Result Flag Units (Reference) GLUCOSE 117 H mg/dL (70-110) BUN 10 mg/dL (7-18) CREATININE 0.7 mg/dL (0.6-1.3) Estimated GFR >60 mL/min Estimated GFR- >60 mL/min Note: Persistent reduction over 3 months in eGFR<60 mL/min/1.73 m2 defines CKD. Patients with eGFR values>=60 mL/min/1.73 m2 may also have CKD if evidence ofpersistent proteinuria. Additional information may be foundat www.kidney.org. SODIUM 122 L mmol/L (136-145) POTASSIUM 4.0 mmol/L (3.5-5.1) CHLORIDE 88 L mmol/L (98-107) CARBON DIOXIDE 23 mmol/L (21-32) CALCIUM 9.1 mg/dL (8.5-10.1) TOTAL PROTEIN 7.0 g/dL (6.4-8.2) ALBUMIN 3.4 g/dL (3.3-5.0) BILIRUBIN, TOTAL 1.1 H mg/dL (0.0-1.0) ALKALINE PHOSPHATASE 92 U/L (46-116) AST (SGOT) 32 U/L (15-37) ALT (SGPT) 38 U/L (12-78) . PROGRESS AND PROCEDURES Course of Care: the patient is a pleasant 36-year-old female presenting for a vaginal to mental status. The differential diagnosis at this time includes metabolic abnormality,hyperglycemia, infectious etiology, or head injury/bleed. Workup including chest x-ray, head CT scan as well as laboratory studies for evaluation of any potential intracranial abnormalities as well as infectious etiologies for her altered mental status. Patient and family are agreeable to the treatment and plan. The patient's workup was noted for the findings above. CT scan of the patient's head does not show any acute abnormalities. Patient's chest x-ray also does not show any signs of consolidation. We are still waiting on some the other patient's laboratory studies. Including the metabolic panel. The patient's laboratory studies had returned. No signs of urinary tract infection or abnormalities of patient's kidney function as well as liver enzymes. The patient's sodium levels noted to be significantly low. No other acute abdomen maladies noted on patient's workup including lactic acid and a thyroid level. Head discussion patient in regards to her symptoms here in the emergency department and findings of low sodium. Patient will need to be admitted to the hospital for further monitoring and management of her hyponatremia. No signs of cerebral edema or seizure at this time. Patient was given a 500 cc bolus of normal saline formild correction of the hyponatremia. Patient is currently resting in bed and in no acute distress. Patient has been given pain medication while here in the emergency department if she developed some discomfort in the lower back while sitting in the bed. Discussed the patient's case with the hospitalist. Patient will be admitted to the hospital. Do not feel patient needs to be admitted to the intensive care unit. Do not feel that this is due to an infectious etiology. At that antibiotics are warranted at this time. Discussed with the patient and with the family workup here in the emergency department including s and plan of care. All questions have been answered. The patient expressed understanding of these instructions and was agreeable to them. In further discussion with the patient, she has been reportedly dehydrated and feeling like this last time she was here. Believe patient's to be likely drinking an increased amount of free water. Patient also states that she has been avoidingsalt as she states it is bad for her. Recommended everything in moderation Including salt. Disposition: Discharged. Condition: good. CLINICAL IMPRESSION moderate/severe hyponatremia altered mental status, acute. (Electronically signed by Stalin Perdue Dr. 10/14/2016 10:15)
--- NOTE | 2016-10-13 21:45 | ED ORDER SUMMARY ---
..... 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) (18:04 10/13/2016 Brenda Cavazos) (19:08 LWhalen R.N.) CBC w Diff Urgent (18:04 10/13/2016 Brenda Cavazos) (Ack 18:10 KHoerner) (19:07 LWhalen R.N.) CMP Urgent (18:04 10/13/2016 Brenda Cavazos) (Ack 18:10 CHELEoerner) (19:07 LWhalen R.N.) Lactate, Serum Urgent (18:04 10/13/2016 Brenda Cavazos) (Ack 18:10 KHoerner) (19:07 LWhalen R.N.) Pulse oximeter (18:04 10/13/2016 Brenda Cavazos) (19:07 LWhalen R.N.) CT Head wo Cont Urgent (18:04 10/13/2016 Brenda Cavazos) (Ack 18:10 CHELEoerner) (19:07 LWhalen R.N.) TSH Urgent (19:16 10/13/2016 Brenda Cavazos) (Ack 19:18 KHoerner) (19:18 KHoerner) MEDICATION ORDERS: IV FLUIDS: Metoprolol IV 2.5 mg (HIGH ALERT MEDICATION, NOW) (18:04 10/13/2016 Brenda Cavazos) (19:08 LWhalen R.N.) IV Saline Lock (18:04 10/13/2016 Brenda Cavazos) (19:08 Eugenio R.N.) Zofran IV 4 mg (NOW) (19:09 10/13/2016 LWelo R.N. verbal order read back to Brenda Cavazos) (19:09 LWhalnella R.N.) Morphine IV 4 mg (HIGH ALERT MEDICATION, NOW) (20:55 10/13/2016 Jone R.NHelder verbal order read back to Brenda Cavazos) (21:09 DDomi R.N.) IV NS : initial bolus 500 mL (1000 mL/hr), then none - for X1 (NOW) (21:41 10/13/2016 Brenda Cavazos) (Ack 21:57 DDavis R.N.) (23:05 DDavis R.N.) ORDER SHEET NOTES: [Electronically signed by Kemal Pitts R.N. (00:18 10/14/2016)] [Electronically signed by Stalin Perdue Dr. (10:15 10/14/2016)] [Electronically locked/signed by Kemal Pitts R.N. (00:18 10/14/2016)]
--- NOTE | 2016-10-13 21:45 | ED ORDER SUMMARY ---
..... 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) (18:04 10/13/2016 Brenda Cavazos) (19:08 LWhalen R.N.) CBC w Diff Urgent (18:04 10/13/2016 Brenda Cavazos) (Ack 18:10 KHoerner) (19:07 LWhalen R.N.) CMP Urgent (18:04 10/13/2016 Brenda Cavazos) (Ack 18:10 CHELEoerner) (19:07 LWhalen R.N.) Lactate, Serum Urgent (18:04 10/13/2016 Brenda Cavazos) (Ack 18:10 KHoerner) (19:07 LWhalen R.N.) Pulse oximeter (18:04 10/13/2016 Brenda Cavazos) (19:07 LWhalen R.N.) CT Head wo Cont Urgent (18:04 10/13/2016 Brenda Cavazos) (Ack 18:10 CHELEoerner) (19:07 LWhalen R.N.) TSH Urgent (19:16 10/13/2016 Brenda Cavazos) (Ack 19:18 KHoerner) (19:18 KHoerner) MEDICATION ORDERS: IV FLUIDS: Metoprolol IV 2.5 mg (HIGH ALERT MEDICATION, NOW) (18:04 10/13/2016 Brenda Cavazos) (19:08 LWhalen R.N.) IV Saline Lock (18:04 10/13/2016 Brenda Cavazos) (19:08 Eugenio R.N.) Zofran IV 4 mg (NOW) (19:09 10/13/2016 LWelo R.N. verbal order read back to Brenda Cavazos) (19:09 LWhalnella R.N.) Morphine IV 4 mg (HIGH ALERT MEDICATION, NOW) (20:55 10/13/2016 Jone R.NHelder verbal order read back to Brenda Cavazos) (21:09 DDomi R.N.) IV NS : initial bolus 500 mL (1000 mL/hr), then none - for X1 (NOW) (21:41 10/13/2016 Brenda Cavazos) (Ack 21:57 DDavis R.N.) (23:05 DDavis R.N.) ORDER SHEET NOTES: [Electronically signed by Kemal Pitts R.N. (00:18 10/14/2016)] [Electronically signed by Stalin Perdue Dr. (10:15 10/14/2016)] [Electronically locked/signed by Kemal Pitts R.N. (00:18 10/14/2016)]
--- NOTE | 2016-10-13 21:45 | ED NURSING NOTES ---
Clinical Report - Nurses [facility] [address] [place] [address] 10/13/2016 17:10 Patient: TRICE BUNDY I TRIAGE Triage time 175Oct 13 2016. Acuity: LEVEL 3. Chief Complaint: WEAKNESS and TROUBLE CONCENTRATING and "FELT STRANGE". JOHANN COMA SCORE: [place] Coma Scale: 15- eyes open spontaneously (4); best verbal response- oriented x 4 (5); best motor response- obeys commands (6). --18:12 Davey Mitchell R.N. 17:59 10/13/16. BP: 181/74. HR: 72. RR: 18. O2 saturation: 97%. Temp: 98.6 F. Pain level now 6/10. --18:12 Davey Mitchell R.N. Weight: 80.7 kg stated. Height/Length: 64 inches Per Patient. BMI: 30.6. --18:08 Davey Mitchell R.N. Medications Gabapentin Oral. --18:11 Davey Mitchell R.N. Losartan Potassium-HCTZ Oral. --18:11 Davey Mitchell R.N. Allergies No Known Drug Allergy. --18:11 Davey Mitchell R.N. History Arrived by private vehicle. Historian: patient. Accompanied by family. This started today. Patient was last known well (0500). She has had altered mental status, dizziness and weakness. She has had mild trouble walking (r/t dizziness). No headache, recent fall, impaired speech, trouble swallowing or numbness. 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 PAST MEDICAL HX: Immunizations: up-to-date. SELF HARM ASSESSMENT: A self harm assessment was performed. The patient answered "no" to the question "Have you recently felt down, depressed, or hopeless?" and "Do you have thoughts of harming or killing yourself?". FALL RISK ASSESSMENT: Fall risk assessment completed. No fall risk identified. NUTRITIONAL RISK ASSESSMENT: The nutritional risk assessment revealed no deficiencies. FUNCTIONAL ASSESSMENT: Functional assessment: no impairments noted. LEARNING NEEDS ASSESSMENT: The learning needs assessment revealed no barriers. ABUSE ASSESSMENT: Abuse assessment: (yes) The patient was asked "Do you feel safe in your home?". SKIN INTEGRITY ASSESSMENT: Skin integrity risk assessment completed. No skin integrity risk identified. --18:12 Davey Mitchell R.N. PROBLEMS: Hyponatremia. Dizziness. Hypertension. Breast Cancer. --18:12 Davey Mitchell R.N. ADDITIONAL SURGERIES: Appendectomy. Cholecystectomy. Hysterectomy. Lobectomy of lung. Mastectomy. --18:12 Davey Mitchell R.N. Interventions ID band on patient. --18:12 Davey Mitchell R.N. PHYSICAL ASSESSMENT To room via wheelchair. Baseline functional status: usually alert, oriented x4 and cooperative. Verbal response: usually clear, appropriate and slow. Motor response: usually requires assistance with ambulation- uses a wheelchair GENERAL / NEURO / PSYCH: Awake. Oriented X 4. Alert. Appears in no acute distress. Speech normal. Mood/affect normal. Moves all extremities. No motor deficit. She has had weakness (from dizziness). No sensory deficit. HEENT: No facial asymmetry noted. Pupils equal, round and reactive to light. EOM intact. Pharynx within normal limits. RESPIRATORY: Breath sounds within normal limits. Respirations not labored. CVS: Normal sinus rhythm noted. Capillary refill less than 2 seconds. SKIN: Skin is intact, warm and dry. BACK: ( Lower back tenderness). --18:14 Davey Mitchell R.N. ( Patient anxious and shifting in bed and around the room. Patient current sitting on edge of the bed. The spouse and daughter of the patient are asking for "a sedative to calm her down," primary ER provider notified.). --20:51 Kemal Pitts R.N. 21:20 10/13/16. HR: 64. Additional comments: NSR on monitor. --21:20 Kemal Pitts R.N. 00:09. ( Patient calm and sitting in wheelchair.). --00:16 Kemal Pitts R.N. NURSING PROGRESS NOTES Pulse oximeter and NIBP monitor placed on patient. Reassurance given. Call light placed in reach. Side rails up x 1. Bed placed in lowest position. Brakes of bed on. --18:14 Davey Mitchell R.N. 18:53 10/13/2016 Site #1 started via IV in the right hand with an 20g angiocath, with aseptic technique and good blood return; one attempt. Blood drawn: rainbow set. Labeled in the presence of the patient and sent to the lab. Saline lock flushed with 10 mL saline. --19:08 Davey Mitchell R.N. 19:03 10/13/2016 Metoprolol (Metoprolol Tartrate) IVP 2.5 mg given over 2 minute(s) via site #1. Allergies verified and confirmed 5 rights. IV patency established. IV site checked: no pain, redness, or swelling. IV flushed thoroughly pre- and post-medication administration. --19:08 Davey Mitchell R.N. 19:09 10/13/2016 Zofran (Ondansetron HCl) IVP 4 mg given over 2 minute(s) via site #1. Allergies verified and confirmed 5 rights. IV patency established. IV site checked: no pain, redness, or swelling. IV flushed thoroughly pre- and post-medication administration. --19:09 Davey Mitchell R.N. ( Report given to Trevor MENARD). --19:17 Davey Mitchell R.N. 19:15 lab present and drawing additional blood samples from patient. --19:24 Kemal Pitts R.N. ( 1906: Report received from Mabel Mariscal RN 1909: Patient placed on conveyor monitor.). --19:26 Kemal Pitts R.N. 19:10 10/13/16. BP: 162/69. HR: 71. RR: 20. O2 saturation: 100% on room air. Additional comments: patient has a regular cardiac rhythm on the monitor. --19:26 Kemal Pitts R.N. ( Patient in a wheelchair on my entering meeting the patient at 1923, she refused to lay in ER stretched and states that he back pain is better sitting in the wheelchair. Male health care attorney of the of patient with the patient currently.). --19:39 Kemal Pitts R.N. family member reports pt feels like she is about to pass out and is laying down. --20:05 Felecia Luo R.N. 5min assist to reposition pt in bed. Pt alert and oriented, states pain and moves slowly. Daughter states this is not her normal behavior. Primary RN notified. --20:15 Felecia Luo R.N. ( family approaches the nurses station, states they "need help", reports patient is "out of her mind", trying to sit up and get out of bed. Primary RN notified.). --20:44 Felecia Luo R.N. 21:04 10/13/2016 Morphine IVP 4 mg given over 2 minute(s) via site #1. Allergies verified, confirmed 5 rights and sedative warning given to the patient and patient's family. IV patency established. IV site checked: no pain, redness, or swelling. IV flushed thoroughly pre- and post-medication administration. IVP given by RN. --21:09 Kemal Pitts R.N. ( Patient calm, resting in bed.). --21:58 Kemal Pitts R.N. 22:40 10/13/2016 Started bag #1 500 mL IV Fluids IV NS (Saline); at 1000 mL/hr over 30 minute(s) via site #1 via IV pump. Allergies verified and confirmed 5 rights. IV patency established. IV site checked: no pain, redness, or swelling. IV flushed thoroughly pre- and post-medication administration. --23:05 Kemal Pitts R.N. ( Patient sitting on bed, with her daughter at bedside.). --23:16 Kemal Pitts R.N. ( Attempted to call report, receiving RN not available. Floor states that SAILAJA Jeffers will call back.). --23:55 Kemal Pitts R.N. Care transferred and report given (SAILAJA Jeffers (Nurse for room 203A)). --00:05 Kemal Pitts R.N. DISPOSITION / DISCHARGE Departure time: 00:07. Admitted to Acute Care (00:06). Transported via by transport team. Patient's personal items include: shirt and pants; items were transported with the patient. --00:07 Kemal Pitts R.N. 00:06 10/14/16. BP: 143/60. HR: 59. RR: 18. --00:18 Kemal Pitts R.N. Condition at departure: stable. --00:18 Kemal Pitts R.N. Locked/Released at 10/14/2016 0:18 by Kemal Pitts R.N.
--- NOTE | 2016-10-13 23:55 | Progress Note ---
Subjective General Admission History and Physical Examination Patient Name: Pratima Rosas Admission Date: October 13, 2016 Primary Care Provider: Lucía Dyson M.D. Attending Physician: Kobe Nino M.D. Admitting Physician: Kobe Nino M.D. Code Status: Full Code Room: 203-A SUBJECTIVE Historian: Patient and family Reliability: Good Chief Complaint: Weakness, confusion History of Present Illness: The patient is a 76-year-old white female with a significant past medical history of hypertension, chronic peripheral edema, spinal stenosis with chronic back pain, breast CA, who presented to [facility] emergency department secondary to complaints of weakness, mild nausea, and mental status changes. [facility] ER evaluation was consistent with hyponatremia (sodium 122) with associated weakness and mental status changes. Secondary to the above, the patient was admitted by Kobe Nino M.D. for further evaluation and treatment. The history of present illness began on the day of admission when the patient presented secondary to suspected dehydration and UTI. She had mild dysuria. No history of fever or chills. She was consuming large amounts water and continue to take her antihypertensive medications including a diuretic. ER evaluation showed the patient to have mild confusion and associated with hyponatremia. Secondary to the above the patient was admitted for further evaluation and treatment. PAST MEDICAL HISTORY Illnesses: 1. Breast cancer 2. Spinal stenosis-chronic back pain 3. Hypertension 4. Chronic lower extremity edema Allergies: 1. No Known Drug Allergies Medications: 1. Gabapentin 300 mg by mouth daily 2. Cozaar/hydrochlorothiazide-100/25 mg 1 by mouth daily Surgery: 1. Cholecystectomy 2. Hysterectomy 3. Breast lumpectomy 4. Mastectomy Injuries: 1. No significant Hospitalizations: 1. For above surgery and medical problems FAMILY HISTORY Parents: 1. Father, unknown, 2. Mother, Damaris, , age unknown, Alzheimer's disease Siblings: 1. Male, Donald, living, 72, healthy Children: 1. Male, Leo, living, 54, healthy 2. Female, Bela, living, 52, healthy Other significant family history: None SOCIAL HISTORY 1. Marital Status: 2. Protestant: None 3. Education: [ed] 4. 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 Occupational health exposures: None HABITS 1. Tobacco: Tobacco use, stopped 1994, amount unknown 2. Drugs: None 3. Alcohol: 1-2 ounces per week 4. Caffeine: 1.5 cups of coffee per day HEALTH SUPERVISION Item/Test 1. Vision screen: 2015 2. Cholesterol Profile: 2015 3. PSA: Not applicable 4. LESIA: Not applicable 5. FOBT: No recent 6. Blood Glucose: 2016 7. Colonoscopy: 2014 8. History and physical exam: 2016 9. Audiogram: No recent 10. Mammogram: 2012 11. Pap/pelvic exam: No recent IMMUNIZATIONS: 1. Pneumococcal: 2014 2. Influenza: No recent 3. Tetanus: No recent ADVANCED DIRECTIVES: 1. Living well: Yes 2. POLST: No 3. Code Status: FULL CODE 4. Durable Power Dishroom Attendant Health care: Yes 5. Donor card: Yes REVIEW OF SYSTEMS Remarkable for those things stated in the history of present illness and past medical history. Seventeen point review of system completed with the following notable findings: General: Pain, weakness Eyes: Dryness, decreased visual acuity requiring corrective lenses Cardiovascular: Ankle swelling, hypertension, pain with ambulation Genitourinary: Incontinence, nocturia Gastrointestinal: Nausea, loss of appetite, heartburn, reflux Musculoskeletal: Joint stiffness, joint pain, backache No logical: Down's problems, memory loss Psychological: Depression, anxiety Physical Exam Vital Signs / I&Os Blood pressure: 181/74 mmHg Heart rate: 72/minute Respiratory rate: 18/minute Temperature: 98.6 Fahrenheit orally Pulse oximetry: 97% room air General Appearance Alert, Cooperative, No acute distress HEENT Atraumatic, PERRLA, EOMI, Moist mucous membranes Lungs Clear to auscultation, Normal air movement Neck Supple, No JVD Cardiovascular Regular rate and rhythm, Normal S1 and S2 Abdomen Normal bowel sounds, Soft, No tenderness, No guarding Extremities No cyanosis, No clubbing, 1-2+ edema bilaterally lower extremities Neurological Cranial nerves intact, No lateralizing signs Psych/Mental Status Mood normal, Confused LAB Results Laboratory Tests 10/13 Chemistry Plasma Sodium (136 - 145 mmol/L) 122 Plasma Potassium (3.5 - 5.1 mmol/L) 4.0 Plasma Chloride (98 - 107 mmol/L) 88 CO2 (Enzymatic) (21 - 32 mmol/L) 23 BUN (7 - 18 mg/dL) 10 Creatinine (0.6 - 1.3 mg/dL) 0.7 Est GFR ( Amer) (mL/min) >60 Est GFR (Non-Af Amer) (mL/min) >60 Glucose (70 - 110 mg/dL) 117 Lactic Acid (0.4 - 2.0 mmol/L) 1.2 Plasma Calcium (8.5 - 10.1 mg/dL) 9.1 Total Bilirubin (0.0 - 1.0 mg/dL) 1.1 AST (15 - 37 U/L) 32 ALT (12 - 78 U/L) 38 Alkaline Phosphatase (46 - 116 U/L) 92 Total Protein (6.4 - 8.2 g/dL) 7.0 Albumin (3.3 - 5.0 g/dL) 3.4 TSH 3rd Generation (0.30 - 3.74 uIU/mL) 2.212 Hematology WBC (4.5 - 11.5 K/uL) 8.5 RBC (4.00 - 5.20 M/uL) 4.33 Hgb (12.0 - 16.0 gm/dL) 13.5 Hct (36.0 - 46.0 %) 39.8 MCV (80 - 100 fL) 92 MCH (26 - 34 pg) 31 RDW (11.6 - 14.8 %) 13.5 Neut % (Auto) (50 - 75 %) 76.8 Lymph % (Auto) (25 - 40 %) 16.3 [place] % (Auto) (3 - 14 %) 5.5 Eos % (Auto) (0 - 4 %) 0.3 Baso % (Auto) (0 - 2 %) 1.1 Plt Count, EDTA (150 - 400 K/uL) 292 PUBS MCHC (31 - 37 g/dL) 34 10/13 1810 Urines Urine Color YELLOW Urine Appearance CLEAR Urine pH (5.0 - 8.0) 7.0 Ur Specific [place] (1.010 - 1.030) 1.010 Urine Protein (NEGATIVE) NEGATIVE Urine Ketones (NEGATIVE) NEGATIVE Urine Blood (NEGATIVE) TRACE-INTACT Urine Nitrite (NEGATIVE) NEGATIVE Urine Bilirubin (NEGATIVE) NEGATIVE Urine Urobilinogen (0.2 - 1.0 EU/dL) 0.2 Ur Leukocyte Esterase (NEGATIVE) NEGATIVE Urine RBC (0 - 1 rbc/hpf) 3-5 Urine WBC (0 - 1 wbc/hpf) 0-1 Ur Epithelial Cells (0 - 5 EPI/hpf) 1-3 Urine Bacteria (NONE SEEN) NONE SEEN Urine Glucose (NEGATIVE) NEGATIVE Urine Comment CULT NOT INDICATED Imaging Chest X-Ray IMPRESSION: 1. Negative chest. Dictated by: FINA LOCKE MD D: STUART;10/13/[address] Scan Head IMPRESSION: 1. Prominent CSF spaces over the frontal lobes most consistent with frontal atrophy. Bilateral chronic subdural hygromas are considered less likely (no evidence of mass effect). 2. Otherwise negative head CT. No evidence of acute process. No evidence of hydrocephalous 3. Findings discussed with Dr. Stalin Perdue at [address] scans at this facility use dose modulation, iterative reconstruction, and/or weight-based dosing when appropriate to reduce radiation dose to as low as reasonably achievable. Dictated by: FINA LOCKE MD D: STUART;10/13/16 6177 Assessment and Plan Problem List 1. Acute hyponatremia Plan -Patient presents with findings of hyponatremia -Sodium 122 -Patient on hydrochlorothiazide and was drinking large amounts of water secondary to suspected UTI -Water restriction-1000 cc per day -Normal saline infusion 40 cc per hour -Monitor serum sodium -Obtain serum osmolality and urinary sodium. 2. Altered mental status, unspecified Plan -Patient family noted mild altered mental status -Patient somewhat slow responses but oriented -Monitor -CT scan unremarkable 3. Hypertension Status Chronic Onset Date Unknown Plan -Patient with history of hypertension -Monitor -No medical therapy at this time -Hold diuretics. 4. Spinal stenosis Status Chronic Onset Date Unknown Plan -Patient with history of chronic back pain, spinal stenosis -Continue gabapentin -Tylenol when necessary Current status: Fair, unstable Anticipated discharge date: Anticipated discharge in 2 days Anticipated discharge placement: Home Patient care time: Time spent in chart review, patient interview, physical exam, CPOE, and care documentation: 70 minutes Visit to patient today: 1 Complexity of care: High Initial evaluation: Emergency department E&M Codes Admission: Inpt-High/07249
[2016-10-14 00:38] VITALS: BP 169/79
--- NOTE | 2016-10-14 01:12 | NUR ---
patient arrived to floor at approximately 0005 - alert and oriented, cooperative with cares. on bed alarm d/t forgetfulness and fall risk with yellow non skid socks. has neuropathy of bilateral feet and feet are very sensitive to touch, placed foot cradle on bed so that blankets don't touch her feet as this is painful for her. notified MD of patient arrival to floor, new orders obtained and awaiting input from pharmacy, called pharmacy to notify of new orders. patient on fluid restriction.
--- NOTE | 2016-10-14 01:53 | NUR ---
IN PATIENT HX FROM ED SAID LOBECTOMY, PATIENT STATES THAT SHE HAS NOT HAD A LOBECTOMY, BUT A LUMPECTOMY.
[2016-10-14 03:16] VITALS: BP 152/65
[2016-10-14 06:54] VITALS: BP 118/42
[2016-10-14] MEDS ORDERED: GABAPENTIN100 MG PO (07:48)
[2016-10-14] MEDS ORDERED: COZAAR100 MG PO (07:49)
[2016-10-14] MEDS ORDERED: NEURONTIN300 MG PO (07:49)
--- NOTE | 2016-10-14 08:18 | NUR ---
RECEIVED PT IN BED, ON HIGH SAMUEL'S POSITION, AWAKE, ALERT, ORIENTED, COHERENT, COOPERATIVE. PT IS ANXIOUS BUT EASILY CALM DOWN, EXPLAINED EVERYTHING TO HER. HARD OF HEARING NOTED. SEEN AND EXAMINED BY DR GAMEZ EARLIER, WITH ORDERS MADE AND CARRIED OUT. PLAN OF CARE INFORMED PT AND DAUGHTER. DUE MEDS GIVEN, MAG CITRATE GIVEN THROUGH NG TUBE. NG TUBE DISCONNECTED TO SUCTION TEMPORARILY. .
--- NOTE | 2016-10-14 09:30 | NUR ---
RECEIVED PT BACK IN BED, ASLEEP BUT EASILY AROUSED, ORIENTED, COHERENT, COOPERATIVE. V/S TAKEN AND RECORDED. ASSESSMENT DONE. PT DENIES ANY PAIN AT THIS TIME, " BUT I NEED MY GABAPENTIN" PT STATES. DUE MEDS GIVEN. KEPT PT WARM. PT PREFERS TO REST AT THIS TIME.
--- NOTE | 2016-10-14 10:16 | ED MED RECONCILIATION SUMMARY ---
Patient: TRICE BUNDY I Medication Reconciliation Report [facility] VisitID: [id number] [address] [place] [address] 76y, F Registration Date/Time: 10/13/2016 Weight: 80.7 kg Height/Length: 64 in. BMI: 30.6 ALLERGIES: No Known Drug Allergy The patient's Home Medications are listed below: THE FOLLOWING MEDICATIONS NEED TO BE RECONCILED: Gabapentin Oral Losartan Potassium-HCTZ Oral The source(s) of the original Home Medication information: Not obtained. The following Medications were given to the patient in the Emergency Department: Metoprolol [IVP] IVP 2.5 mg, administered: 10/13/2016 7:03:00 PM Zofran [IVP] IVP 4 mg, administered: 10/13/2016 7:09:00 PM Morphine [IVP] IVP 4 mg, administered: 10/13/2016 9:04:00 PM IV NS IV Fluids bolus 0, then 1000 mL/hr, administered: 10/13/2016 10:40:00 PM The following Medications were prescribed to the patient: None.
--- NOTE | 2016-10-14 10:16 | ED MED RECONCILIATION SUMMARY ---
Patient: TRICE BUNDY I Medication Reconciliation Report [facility] VisitID: [id number] [address] [place] [address] 76y, F Registration Date/Time: 10/13/2016 Weight: 80.7 kg Height/Length: 64 in. BMI: 30.6 ALLERGIES: No Known Drug Allergy The patient's Home Medications are listed below: THE FOLLOWING MEDICATIONS NEED TO BE RECONCILED: Gabapentin Oral Losartan Potassium-HCTZ Oral The source(s) of the original Home Medication information: Not obtained. The following Medications were given to the patient in the Emergency Department: Metoprolol [IVP] IVP 2.5 mg, administered: 10/13/2016 7:03:00 PM Zofran [IVP] IVP 4 mg, administered: 10/13/2016 7:09:00 PM Morphine [IVP] IVP 4 mg, administered: 10/13/2016 9:04:00 PM IV NS IV Fluids bolus 0, then 1000 mL/hr, administered: 10/13/2016 10:40:00 PM The following Medications were prescribed to the patient: None.
--- NOTE | 2016-10-14 10:16 | ED DISCHARGE INSTRUCTIONS ---
Patient: TRICE BUNDY I General Instructions [facility] VisitID: [id number] [address] [place] [address] 76y, F Registration Date/Time: 10/13/2016 moderate/severe hyponatremia altered mental status, acute. (Electronically signed by Stalin Perdue Dr. 10/14/2016 10:15)
--- NOTE | 2016-10-14 10:16 | ED MAR SUMMARY ---
..... Medication Administration Record [facility] [address] [place] [address] Patient: TRICE BUNDY I Visit ID: [id number] 76y, F Weight: 80.7 kg Height/Length: 64 in BMI: 30.6 ALLERGIES: No Known Drug Allergy Given 19:03 10/13/2016 Davey Mitchell R.N. Medication Administered: METOPROLOL [IVP] (METOPROLOL TARTRATE), Dose: 2.5 mg IVP over 2 minute(s), Site: #1 right hand. Medication Ordered: Metoprolol IV 2.5 mg (HIGH ALERT MEDICATION, NOW). Given 19:09 10/13/2016 Davey Mitchell R.N. Medication Administered: ZOFRAN [IVP] (ONDANSETRON HCL), Dose: 4 mg IVP over 2 minute(s), Site: #1 right hand. Medication Ordered: Zofran IV 4 mg (NOW). Given 21:04 10/13/2016 Kemal Pitts R.N. Medication Administered: MORPHINE [IVP], Dose: 4 mg IVP over 2 minute(s), Site: #1 right hand. Medication Ordered: Morphine IV 4 mg (HIGH ALERT MEDICATION, NOW). Start 22:40 10/13/2016 Kemal Pitts R.N. Medication Administered: IV NS (SALINE), Dose: IV Fluids over 30 minute(s), Rate: 1000 mL/hr, Dispensed: 500 mL bag, Site: #1 right hand. Medication Ordered: IV NS : initial bolus 500 mL (1000 mL/hr), then none - for X1 (NOW).
--- NOTE | 2016-10-14 10:16 | ED MAR SUMMARY ---
..... Medication Administration Record [facility] [address] [place] [address] Patient: TRICE BUNDY I Visit ID: [id number] 76y, F Weight: 80.7 kg Height/Length: 64 in BMI: 30.6 ALLERGIES: No Known Drug Allergy Given 19:03 10/13/2016 Davey Mitchell R.N. Medication Administered: METOPROLOL [IVP] (METOPROLOL TARTRATE), Dose: 2.5 mg IVP over 2 minute(s), Site: #1 right hand. Medication Ordered: Metoprolol IV 2.5 mg (HIGH ALERT MEDICATION, NOW). Given 19:09 10/13/2016 Davey Mitchell R.N. Medication Administered: ZOFRAN [IVP] (ONDANSETRON HCL), Dose: 4 mg IVP over 2 minute(s), Site: #1 right hand. Medication Ordered: Zofran IV 4 mg (NOW). Given 21:04 10/13/2016 Kemal Pitts R.N. Medication Administered: MORPHINE [IVP], Dose: 4 mg IVP over 2 minute(s), Site: #1 right hand. Medication Ordered: Morphine IV 4 mg (HIGH ALERT MEDICATION, NOW). Start 22:40 10/13/2016 Kemal Pitts R.N. Medication Administered: IV NS (SALINE), Dose: IV Fluids over 30 minute(s), Rate: 1000 mL/hr, Dispensed: 500 mL bag, Site: #1 right hand. Medication Ordered: IV NS : initial bolus 500 mL (1000 mL/hr), then none - for X1 (NOW).
--- NOTE | 2016-10-14 10:16 | ED DISCHARGE INSTRUCTIONS ---
Patient: TRICE BUNDY I General Instructions [facility] VisitID: [id number] [address] [place] [address] 76y, F Registration Date/Time: 10/13/2016 moderate/severe hyponatremia altered mental status, acute. (Electronically signed by Stalin Perdue Dr. 10/14/2016 10:15)
[2016-10-14 11:36] VITALS: BP 130/46
[2016-10-14 14:57] VITALS: BP 128/52
--- NOTE | 2016-10-14 15:38 | Provider's Discharge Care Plan ---
Problem, Goal, Plan Problem List 1. Acute hyponatremia Instructions: - limit sodium to 2 grams daily - consume a consistent quantity of water daily - follow up with your primary care doctor within 1 week - will need repeat sodium leve in 1 week as well 2. Hypertension
--- NOTE | 2016-10-14 15:46 | Discharge Summary ---
Discharge Summary Report Admit Date 10/13/16 Discharge Date 10/14/16 Admission Diagnosis hyponatremia Discharge Diagnosis hyponatremia secondary to low salt intake and anti hypertensive Brief History please see admission H&P Hospital Course Patient was admitted for hyponatremia and altrered mental status. Patient explained that she has been adhering to a low sodium diet and has been having increased fluid intake throughout the day. Patient was started here on normal saline and patients sodiums were monitored. Patient was able to have normal incremental increases in her sodium to the point where it was normalized. Urine lytes were normal for the patient, no evidence of renal dysfunction. Patient will be discharged, she will follow up with her primary care provider within the week, she will additionally not take any more of her spirinalactone. Patient is safe for discharge at this point. General Appearance Alert, Oriented X3, No acute distress HEENT PERRLA, Mucous membran moist/pink Lungs Normal air movement Cardiovascular Normal S1, Normal S2, No murmurs Abdomen No tenderness Skin No Breakdown, No Significant Lesions Neurological Normal speech, Normal tone, Sensation intact, Cranial nerves 3-12 NL Discharge Instructions/Meds - stop taking losartan for the time being - track sodium and water intake - follow up with your primary care provider
--- NOTE | 2016-10-14 16:20 | NUR ---
Pt discharging to home. All discharge paperwork and instructions explained to pt and given to pt. Pt had no questions. All personal belongings gathered and taken home by pt. PIV removed. Tele discontinued. here to transport pt home. Pt stated "I had a great time". Pt ambulated to front entrance with and facility tech. No new prescriptions. D/C'd at 1618.
== END 2016-10-14 16:18 | disposition home or self-care (01) ==
LOC: ED SRH 17:10 → TRANS SRH 21:53 → ACUTE2 SRH 10-14 00:35
PROVIDERS: ADMIT Emergency Medicine
DX: E87.1 Hypo-osmolality and hyponatremia (principal); T46.5X5A Adverse effect of other antihypertensive drugs, initial encounter; I10 Essential (primary) hypertension; R41.82 Altered mental status, unspecified
CPT/HCPCS: 29230; 29251; 85241; 90004; 90047; 90074; 90100; 92031; 93140; 95059